=== PATIENT | female | born 1945 | race Two or more races ===

== ENCOUNTER 2023-09-02 14:01 | Inpatient (IN) | payer MEDICAID, OTHER ==
[~2023-09-02] VITALS: Ht 157.5 cm; Wt 67.3 kg
[2023-09-02 15:49] LABS: Basophils # (auto) 0.1 10 ^3/uL (0-0.2); Eosinophils # (auto) 0.1 10 ^3/uL (0-0.8); Monocytes # (auto) 1.1 10 ^3/uL (0-1.3); Red Cell Distribution Width 14.1 % (11.8-14.3)
[2023-09-02 15:53] LABS: Basophils % (auto) 0.8 % (0.0-2.0); Eosinophils % (auto) 0.8 % (0.0-7.0); Hematocrit 41.5 % (36.0-46.0); Hemoglobin 13.3 g/dL (12.2-16.2); Lymphocytes # (auto) 3.1 10 ^3/uL (0.4-5.4); Mean Corpuscular Hemoglobin 25.6 pg (28.0-32.0); Mean Corpuscular Volume 80.1 fL (80.0-100.0); Monocytes % (auto) 8.8 % (0.0-12.0); Neutrophils # (auto) 7.6 10 ^3/uL (1.6-8.6); Neutrophils % (auto) 63.6 % (37.0-80.0); Red Blood Cells 5.19 10^6/uL (4.0-5.20)
[2023-09-02] MEDS: IPRATROPIUM BROM 0.5 MG/2.5ML INH SOL NEB ONE (16:28)
[2023-09-02] MEDS: ALBUTEROL SULF 2.5 MG/0.5ML(0.5%) NEB SOLN NEB ONE (16:28)
[2023-09-02] MEDS: DexAMETHasone SOD PHOS 10MG/1ML VIAL INJ IM ONE (16:30)
[2023-09-02 16:54] LABS: INR 1.01 (0.9-1.15); Partial Thromboplastin Time 31.1 SEC (24.5-34.5); Prothrombin Time 10.6 sec (9.3-11.8)
[2023-09-02] MEDS: ASPirin 325 MG TAB PO ONE (16:57)
[2023-09-02] MEDS ORDERED: MORPHINE SULFATE INJ 2 MG/ml SYRG IV PRN (17:00)
[2023-09-02] MEDS ORDERED: NITROGLYCERIN 0.4 MG SL TAB SL PRN (17:00)
[2023-09-02 17:10] LABS: Alanine Aminotransferase 17 U/L (7-40); Albumin 4.6 g/dL (3.2-4.8); Alkaline Phosphatase 120 U/L (46-116); Anion Gap 8 (5-15); Aspartate Aminotransferase 24 U/L (13-40); BUN/Creatinine Ratio 15.9 (10.0-20.0); Blood Urea Nitrogen 10 mg/dL (9-23); Calcium 9.3 mg/dL (8.5-10.1); Carbon Dioxide 25 mmol/L (20-30); Chloride 108 mmol/L (98-107); Cholesterol 175 mg/dL (< 200); Glucose 102 mg/dL (74-106); HDL Cholesterol 45 mg/dL (40-59); LDL Cholesterol 102 mg/dL (< 100); Potassium 3.7 mmol/L (3.5-5.1); Sodium 141 mmol/L (136-145); Triglycerides 247 mg/dL (< 150)
[2023-09-02 17:11] LABS: Bilirubin, Total 0.5 mg/dL (0.2-1.0); Total Protein 6.9 g/dL (5.7-8.2)
[2023-09-02 17:26] LABS: Magnesium 2.1 mg/dL (1.6-2.6)
[2023-09-02 17:45] VITALS: PULSE 120; RESP 20; O2SAT 89
[2023-09-02] MEDS: HEPARIN SODIUM (PORCINE) 5000 UNITS/ML 1ML VIAL IV ONE (18:22)
[2023-09-02] MEDS: HEPARIN DRIP/D5W 100UNITS/ML 250 ML IV SCH (18:23)
[2023-09-02 19:45] VITALS: PULSE 125; RESP 18; O2SAT 95
[2023-09-02] MEDS: IOHEXOL 350 MG/ML 100ML IJ ONE (20:39)
[2023-09-02 21:33] LABS: Urine Bacteria NONE SEEN /hpf (None Seen); Urine Blood Negative /uL (Negative); Urine Clarity Clear (Clear); Urine Color Colorless (Yellow); Urine Protein, UAD Negative (Negative); Urine Specific Gravity 1.009 (1.001-1.035); Urine Urobilinogen Normal (Negative); Urine WBC <1 /hpf (0 - 5)
[2023-09-02] MEDS: METOPROLOL TARTRATE 25 MG TAB PO SCH (22:26)
[2023-09-02] MEDS: ATORVASTATIN 20 MG TAB PO SCH (22:26)
[2023-09-02 22:28] VITALS: PULSE 86
[2023-09-03] VITALS (7 sets, daily range): BP systolic 104–125; BP diastolic 62–68; PULSE 97–108; RESP 18–20; TEMP 98–98.3; O2SAT 97–98
[2023-09-03] MEDS ORDERED: HYDROcodone-ACET 5/325MG TAB PO PRN (01:15)
[2023-09-03] MEDS ORDERED: DOCUSATE SOD 100 MG CAP PO PRN (01:15)
[2023-09-03] MEDS ORDERED: ONDANSETRON HCL 4 MG/2 ML VIAL IV PRN (01:15)
[2023-09-03] MEDS ORDERED: ACETAMINOPHEN 325 MG TAB PO PRN (01:15)
[2023-09-03] MEDS ORDERED: NITROGLYCERIN 0.4 MG SL TAB SL PRN (01:15)
[2023-09-03] MEDS ORDERED: MORPHINE SULFATE INJ 2 MG/ml SYRG IV PRN (01:15)
[2023-09-03] MEDS: FUROSEMIDE 40 MG/4 ML VIAL IV ONE (03:00)
[2023-09-03] MEDS: SODIUM CHLOR 0.9% PF (SALINE LOCK) 10ML VIAL/SYR IV SCH (06:00)
[2023-09-03 06:41] LABS: Basophils # (auto) 0 10 ^3/uL (0-0.2); Basophils % (auto) 0.4 % (0.0-2.0); Eosinophils # (auto) 0 10 ^3/uL (0-0.8); Eosinophils % (auto) 0.1 % (0.0-7.0); Hematocrit 40.1 % (36.0-46.0); Hemoglobin 12.9 g/dL (12.2-16.2); Lymphocytes # (auto) 1.2 10 ^3/uL (0.4-5.4); Lymphocytes % (auto) 11.6 % (10.0-50.0); Mean Corpuscular Hemoglobin 25.7 pg (28.0-32.0); Mean Corpuscular Hgb Conc. 32.2 g/dL (32.0-36.0); Mean Corpuscular Volume 79.8 fL (80.0-100.0); Monocytes # (auto) 0.8 10 ^3/uL (0-1.3); Monocytes % (auto) 7.1 % (0.0-12.0); Neutrophils # (auto) 8.6 10 ^3/uL (1.6-8.6); Neutrophils % (auto) 80.8 % (37.0-80.0); Red Blood Cells 5.02 10^6/uL (4.0-5.20); Red Cell Distribution Width 13.8 % (11.8-14.3); White Blood Cell 10.7 10^3/uL (4.4-10.8)
[2023-09-03 06:55] LABS: Alanine Aminotransferase 12 U/L (7-40); Albumin 4.1 g/dL (3.2-4.8); Alkaline Phosphatase 113 U/L (46-116); Anion Gap 7 (5-15); Aspartate Aminotransferase 18 U/L (13-40); BUN/Creatinine Ratio 19.7 (10.0-20.0); Blood Urea Nitrogen 14 mg/dL (9-23); Calcium 9.3 mg/dL (8.7-10.4); Carbon Dioxide 24 mmol/L (20-30); Chloride 107 mmol/L (98-107); Glucose 160 mg/dL (74-106); INR 1.12 (0.9-1.15); Partial Thromboplastin Time 49.3 SEC (24.5-34.5); Potassium 4.3 mmol/L (3.5-5.1); Prothrombin Time 11.7 sec (9.3-11.8); Sodium 138 mmol/L (136-145)
[2023-09-03 06:56] LABS: Bilirubin, Total 0.7 mg/dL (0.2-1.0); Total Protein 6.8 g/dL (5.7-8.2)
[2023-09-03] MEDS: FUROSEMIDE 40 MG/4 ML VIAL IV SCH (09:41)
[2023-09-03] MEDS: ASPirin 81 mg TAB PO SCH (09:41)
[2023-09-03] MEDS: CLOPIDOGREL BISULFATE 75 MG TAB PO SCH (09:42)
[2023-09-03] MEDS: HEPARIN DRIP/D5W 100UNITS/ML 250 ML IV SCH (10:00)
[2023-09-03] MEDS: ENOXAPARIN SOD 80 MG/0.8ML SYRINGE SC SCH (23:05)
[2023-09-04] VITALS (9 sets, daily range): BP systolic 93–110; BP diastolic 46–64; PULSE 70–104; RESP 18; TEMP 97.7–98.4; O2SAT 90–98
[2023-09-04 08:05] LABS: Basophils # (auto) 0.1 10 ^3/uL (0-0.2); Basophils % (auto) 0.8 % (0.0-2.0); Eosinophils # (auto) 0.1 10 ^3/uL (0-0.8); Hemoglobin 11.5 g/dL (12.2-16.2); White Blood Cell 9.9 10^3/uL (4.4-10.8)
[2023-09-04 08:08] LABS: Eosinophils % (auto) 0.5 % (0.0-7.0); Hematocrit 35.8 % (36.0-46.0); Lymphocytes # (auto) 4.3 10 ^3/uL (0.4-5.4); Mean Corpuscular Hemoglobin 25.8 pg (28.0-32.0); Mean Corpuscular Volume 80.7 fL (80.0-100.0); Monocytes # (auto) 0.7 10 ^3/uL (0-1.3); Monocytes % (auto) 7.3 % (0.0-12.0); Neutrophils # (auto) 4.8 10 ^3/uL (1.6-8.6); Neutrophils % (auto) 48.4 % (37.0-80.0); Nucleated Red Blood Cells % 0.1 %; Red Blood Cells 4.44 10^6/uL (4.0-5.20)
[2023-09-04 08:53] LABS: Alanine Aminotransferase 11 U/L (7-40); Albumin 3.9 g/dL (3.2-4.8); Alkaline Phosphatase 85 U/L (46-116); Anion Gap 6 (5-15); Aspartate Aminotransferase 13 U/L (13-40); BUN/Creatinine Ratio 30.6 (10.0-20.0); Bilirubin, Total 0.4 mg/dL (0.2-1.0); Blood Urea Nitrogen 19 mg/dL (9-23); Calcium 8.8 mg/dL (8.5-10.1); Carbon Dioxide 26 mmol/L (20-30); Chloride 108 mmol/L (98-107); Glucose 94 mg/dL (74-106); Potassium 3.7 mmol/L (3.5-5.1); Sodium 140 mmol/L (136-145); Total Protein 5.9 g/dL (5.7-8.2)
[2023-09-04] MEDS: METOPROLOL TARTRATE 25 MG TAB PO SCH (21:20)
[2023-09-05 01:00] VITALS: BP 111/53; PULSE 84; RESP 18; TEMP 98.1; O2SAT 98
[2023-09-05 05:00] VITALS: BP 103/52; PULSE 83; RESP 17; TEMP 97.8; O2SAT 98
[2023-09-05 09:00] VITALS: BP 115/57; PULSE 86; RESP 18; TEMP 97.6; O2SAT 98
[2023-09-05] MEDS: REGADENOSON 0.4 MG/5 ML SYRG IV ONE ×2 (12:14→12:36)
[2023-09-05 12:34] VITALS: BP 114/51; PULSE 95; RESP 18; TEMP 98; O2SAT 97
[2023-09-05 17:00] VITALS: BP 101/54; PULSE 87; RESP 18; TEMP 98.4; O2SAT 97
[2023-09-05 20:53] VITALS: BP 129/70; PULSE 95; RESP 18; TEMP 98.5; O2SAT 95
[2023-09-05] MEDS: SACUBITRIL-VALSARTAN 24mg/26mg TAB PO SCH (22:00)
[2023-09-06 01:00] VITALS: BP 102/55; PULSE 85; RESP 18; TEMP 98.2; O2SAT 90
[2023-09-06 05:00] VITALS: BP 117/67; PULSE 89; RESP 18; TEMP 98.2; O2SAT 92
[2023-09-06 08:00] VITALS: PULSE 94; PULSE 95; RESP 18
[2023-09-06 09:00] VITALS: BP 121/59; PULSE 94; RESP 18; TEMP 98.5; O2SAT 100
[2023-09-06] MEDS: SPIRONOLACTONE 25 MG TAB PO SCH (09:41)
[2023-09-06] MEDS: ENOXAPARIN SOD 40 MG/0.4 ML SYRINGE SC SCH (09:41)
[2023-09-06] MEDS: EMPAGLIFLOZIN 10 MG TAB PO SCH (09:42)
[2023-09-06] MEDS: PANTOPRAZOLE 40 MG TAB PO SCH (09:42)
[2023-09-06] MEDS: FUROSEMIDE 20 MG TAB PO SCH (09:42)
[2023-09-06] MEDS ORDERED: CLOP75TA28 PO (12:47)
[2023-09-06] MEDS ORDERED: FURO1TAB33 PO (12:47)
[2023-09-06] MEDS ORDERED: ATOR-507 PO (12:47)
[2023-09-06] MEDS ORDERED: PANT40T PO (12:47)
[2023-09-06] MEDS ORDERED: SACU1TAB PO (12:47)
[2023-09-06] MEDS ORDERED: SPIR25TA PO (12:47)
[2023-09-06] MEDS ORDERED: EMPA1TAB PO (12:47)
[2023-09-06] MEDS ORDERED: METO25TA5 PO (12:47)
[2023-09-06 13:00] VITALS: BP 105/60; PULSE 88; RESP 18; TEMP 98; O2SAT 91
[2023-09-06 13:08] VITALS: BP 124/59; PULSE 94; TEMP 36.9
== END 2023-09-06 14:20 | disposition home or self-care (01) | DRG 190 ==
LOC: EDBD 14:04 → ER 14:04 → TELE 09-03 01:19 → TELE-WESTW 09-03 04:50
PROVIDERS: ADMIT Family Medicine; ATTEND Family Medicine
DX: I21.4 Non-ST elevation (NSTEMI) myocardial infarction (principal); I50.23 Acute on chronic systolic (congestive) heart failure; I11.0 Hypertensive heart disease with heart failure; E78.00 Pure hypercholesterolemia, unspecified; D72.829 Elevated white blood cell count, unspecified; J43.9 Emphysema, unspecified; K21.9 Gastro-esophageal reflux disease without esophagitis; K25.9 Gastric ulcer, unspecified as acute or chronic, without hemorrhage or perforation; R73.03 Prediabetes; J44.1 Chronic obstructive pulmonary disease with (acute) exacerbation; Z87.891 Personal history of nicotine dependence
CPT/HCPCS: 36415; 71046; 71275; 78452; 80053; 80061; 81001; 83036; 83735; 83880; 84443; 84484; 85025; 85379; 85610; 85730; 93005; 93017; 93306; 93970; 94640; G0378; J1100